=== PATIENT | female | born 1995 | race Caucasian/White ===

== ENCOUNTER → 2016-10-29 | Outpatient (CLI) | payer OTHER ==
--- NOTE | 2016-10-29 13:49 | REP ---
Clinical: Follow-up left ovarian cyst. Technique: Transabdominal pelvic ultrasound followed by transvaginal examination for better evaluation of the endometrium and adnexa with color Doppler evaluation of the ovaries. Findings: Bladder is unremarkable and measures 11.1 x 10.1 x 8.2 cm . Normal anteverted uterus measures 6.8 x 2.3 x 4.2 cm . The endometrial complex measures 5.2 mm thickness. No discrete uterine or endometrial abnormalities are appreciated. Bilateral ovaries are normal in appearance and vascularity without evidence for torsion. Right ovary measures 4.0 x 2.3 x 3.0 cm ; R I = 0.50 and includes 1.7 cm hemorrhagic cyst. Left ovary measures 3.3 x 1.9 x 2.9 cm ; R I = 0.60 and includes 1.7 cm hemorrhagic cyst. A small 4 mm echogenic focus within the left ovary is nonspecific but may represent a minuscule dermoid. The previously identified 3.9 cm complex lesion in the left ovary has resolved and likely represented physiologic hemorrhagic cyst. No pelvic fluid or adnexal mass lesion . Impression: 1. Normal bladder, uterus, and right ovary. 2. Previously identified 3.9 cm complex lesion in the left ovary has resolved and likely represented enlarged physiologic hemorrhagic cyst. 3. 4 mm echogenic focus in the left ovary is again identified and may represent a minuscule dermoid. Signed by Tommie Childers MD 10/29/2016 01:40 P
== END ==
LOC: M RAD 12:33
PROVIDERS: ATTEND Specialist
DX: R93.8 Abnormal findings on diagnostic imaging of other specified body structures (principal)

== ENCOUNTER 2017-06-05 13:30 | Emergency (ER) | payer OTHER ==
[~2017-06-05] VITALS: Ht 157.5 cm; Wt 45.5 kg
[2017-06-05 13:30] VITALS: BP 129/80
[2017-06-05] MEDS ORDERED: CETI10TA (13:40)
[2017-06-05] MEDS ORDERED: ANOR1AER (13:40)
[2017-06-05] MEDS ORDERED: MONT10TA2 (13:40)
[2017-06-05] MEDS ORDERED: ALBU17IN (13:40)
[2017-06-05] MEDS ORDERED: VITA1CAP40 (13:40)
[2017-06-05] MEDS ORDERED: GENTAMICIN 0.3% OPHTH SOL 5 ML BTL OD ONE (14:30)
[2017-06-05] MEDS ORDERED: FLUORESCEIN OPHTH 1 MG STRIP OD ONE (14:30)
[2017-06-05] MEDS ORDERED: ACETAMINOPH W/CODEINE #3 TAB UD PO ONE (14:30)
[2017-06-05] MEDS ORDERED: ACET30TAB PO (14:33)
[2017-06-05] MEDS ORDERED: GENT0.3O3 OD (14:33)
== END 2017-06-05 14:53 | disposition home or self-care (01) ==
LOC: M ED 14:18
DX: T20.20XA Burn of second degree of head, face, and neck, unspecified site, initial encounter (principal); S05.01XA Injury of conjunctiva and corneal abrasion without foreign body, right eye, initial encounter; X19.XXXA Contact with other heat and hot substances, initial encounter; W22.8XXA Striking against or struck by other objects, initial encounter; Y92.511 Restaurant or cafe as the place of occurrence of the external cause; Y93.89 Activity, other specified; Y99.0 Civilian activity done for income or pay; J45.909 Unspecified asthma, uncomplicated; Z79.899 Other long term (current) drug therapy

== ENCOUNTER → 2018-08-11 | Outpatient (CLI) | payer OTHER | LOC: M RAD 10:17 | DX: N63.10 Unspecified lump in the right breast, unspecified quadrant (principal) | CPT/HCPCS: 77066 ==

== ENCOUNTER → 2018-12-01 | Outpatient (REF) | payer OTHER ==
[~2018-12-01] MED LIST: ACET30TAB PO; ALBU17IN; ANOR1AER; CETI10TA; GENT0.3O3 OD; MONT10TA2; VITA50005
== END ==
LOC: M LAB REF 17:22
PROVIDERS: ATTEND Physician Assistant Medical
DX: J02.9 Acute pharyngitis, unspecified (principal)

== ENCOUNTER → 2018-12-28 | Outpatient (REF) | payer OTHER ==
[~2018-12-28] MED LIST changes: +ACET-716 PO; -ACET30TAB PO
[2018-12-28 18:10] LABS: BASO % 0.2 % (0.0-1.0); EOS # 0.2 10^3/uL (0.0-0.50); EOS % 2.5 % (0.0-3.0); HEMATOCRIT 40.4 % (36.0-47.0); LYMPH # 2.7 10^3/uL (1.5-6.5); LYMPH % 44.9 % (24.0-44.0); MEAN CORPUSCULAR HEMOGLOBIN 31.3 pg (27.0-33.0); MEAN CORPUSCULAR HGB CONC 34.7 g/dl (32.0-36.5); MEAN CORPUSCULAR VOLUME 90.2 fl (80.0-96.0); MONO # 0.5 10^3/uL (0.0-0.8); MONO % 8.5 % (0.0-5.0); NEUTROPHILS # 2.6 10^3/uL (1.8-7.7); NEUTROPHILS % 43.7 % (36.0-66.0); PLATELET COUNT, AUTOMATED 232 10^3/uL (150-450); RED BLOOD COUNT 4.48 10^6/uL (4.00-5.40)
[2018-12-28 18:22] LABS: ALT/SGPT 11 U/L (12-78); BILIRUBIN,TOTAL 0.4 MG/DL (0.2-1.0); BLOOD UREA NITROGEN 4 MG/DL (7-18); CALCIUM LEVEL 8.7 MG/DL (8.5-10.1); CARBON DIOXIDE LEVEL 28 MEQ/L (21-32); CHLORIDE LEVEL 108 MEQ/L (98-107); CREATININE FOR GFR 0.52 MG/DL (0.55-1.30); FREE T4 1.34 NG/DL (0.76-1.46); GLOMERULAR FILTRATION RATE > 60.0 (>60); GLUCOSE, FASTING 58 MG/DL (70-100); POTASSIUM SERUM 4.1 MEQ/L (3.5-5.1); SODIUM LEVEL 141 MEQ/L (136-145); THYROID STIMULATING HORMONE 0.969 uIU/ML (0.358-3.740); TOTAL PROTEIN 6.6 GM/DL (6.4-8.2)
== END ==
LOC: M SFHCADAM 11:46
PROVIDERS: ATTEND Physician Assistant Medical
DX: F32.9 Major depressive disorder, single episode, unspecified (principal); F41.9 Anxiety disorder, unspecified; F17.210 Nicotine dependence, cigarettes, uncomplicated

== ENCOUNTER → 2019-05-04 | Outpatient (CLI) | payer OTHER ==
--- NOTE | 2019-05-04 13:03 | REP ---
Right thumb four views : There is no fracture or dislocation. Mineralization and joint spaces are normal. There are no calcifications or foreign bodies. Impression: Negative right thumb . Electronically Signed by Gael Edmond MD 05/04/2019 12:54 P
== END ==
LOC: M ADAMS 10:01
PROVIDERS: ATTEND Physician Assistant Medical
DX: M79.644 Pain in right finger(s) (principal)

== ENCOUNTER → 2019-08-20 | Outpatient (CLI) | payer OTHER ==
[2019-08-20 14:27] LABS: BLOOD UREA NITROGEN 5 MG/DL (7-18); CALCIUM LEVEL 9.4 MG/DL (8.5-10.1); CARBON DIOXIDE LEVEL 29 MEQ/L (21-32); CHLORIDE LEVEL 106 MEQ/L (98-107); CHOLESTEROL LEVEL 180 MG/DL (<200); CREATININE FOR GFR 0.48 MG/DL (0.55-1.30); GLOMERULAR FILTRATION RATE > 60.0 (>60); GLUCOSE, FASTING 97 MG/DL (70-100); HDL CHOLESTEROL 45 MG/DL (>40); HEMOGLOBIN A1c 4.8 %; LDL CHOLESTEROL 112 MG/DL (<100); NON-HDL-C 135 MG/DL; POTASSIUM SERUM 4.5 MEQ/L (3.5-5.1); SODIUM LEVEL 140 MEQ/L (136-145); TRIGLYCERIDES LEVEL 113 MG/DL (<150)
== END ==
LOC: M PLALAB 11:59
PROVIDERS: ATTEND Student in an Organized Health Care Education/Training Program
DX: F32.2 Major depressive disorder, single episode, severe without psychotic features (principal); F12.20 Cannabis dependence, uncomplicated

== ENCOUNTER → 2020-01-04 | Outpatient (REF) | payer OTHER ==
[~2020-01-04] MED LIST changes: -MONT10TA2; +MONT10TA4
[2020-01-04 16:59] LABS: FREE T4 1.31 NG/DL (0.76-1.46); THYROID STIMULATING HORMONE 0.872 uIU/ML (0.358-3.740)
== END ==
LOC: M SFHCADAM 14:56
PROVIDERS: ATTEND Physician Assistant Medical
DX: E01.0 Iodine-deficiency related diffuse (endemic) goiter (principal)

== ENCOUNTER → 2020-01-15 | Outpatient (CLI) | payer OTHER ==
--- NOTE | 2020-01-16 03:47 | REP ---
Clinical: Thyromegaly. Technique: Real time jc scale and color evaluation using linear high frequency transducer. Findings: The thyroid gland is upper limits of normal in size and relatively normal in contour and parenchymal echo texture without significant mass, nodule or large cystic lesions identified. Isthmus measures 3.3 mm in width. Right lobe measures 5.1 x 1.6 x 1.9 cm and includes 2.6 x 1.4 x 1.8 mm mid pole incidental hypoechoic nodule/cyst with small echogenic foci. Left lobe measures 4.5 x 1.7 x 1.5 cm and includes 2.9 x 1.5 x 2.7 mm, 2.0 x 1.5 x 2.3 mm, and 2.3 x 0.9 x 1.9 mm hypoechoic nodules/cysts with small echogenic foci. Impression: Few small bilateral hypoechoic nodules/cysts measuring up to 2.6 mm maximal diameter are relatively nonspecific and likely incidental. Electronically Signed by Tommie Childers MD 01/16/2020 03:39 A
== END ==
LOC: M RAD 11:21
PROVIDERS: ATTEND Physician Assistant Medical
DX: E01.0 Iodine-deficiency related diffuse (endemic) goiter (principal)

== ENCOUNTER → 2020-02-18 | Outpatient (CLI) | payer OTHER, MEDICAID ==
[2020-02-18 14:10] LABS: ALBUMIN 3.9 GM/DL (3.2-5.2); ALT/SGPT 15 U/L (12-78); BILIRUBIN,DIRECT < 0.1 MG/DL (0.0-0.2); BILIRUBIN,TOTAL 0.2 MG/DL (0.2-1.0); BLOOD UREA NITROGEN 5 MG/DL (7-18); CALCIUM LEVEL 9.3 MG/DL (8.5-10.1); CARBON DIOXIDE LEVEL 28 MEQ/L (21-32); CHLORIDE LEVEL 108 MEQ/L (98-107); CREATININE FOR GFR 0.55 MG/DL (0.55-1.30); GLOMERULAR FILTRATION RATE > 60.0 (>60); GLUCOSE, FASTING 91 MG/DL (70-100); POTASSIUM SERUM 4.4 MEQ/L (3.5-5.1); SODIUM LEVEL 142 MEQ/L (136-145); TOTAL PROTEIN 7.4 GM/DL (6.4-8.2)
[2020-02-18 14:13] LABS: HEMOGLOBIN A1c 4.8 %
== END ==
LOC: M PLALAB 11:22
PROVIDERS: ATTEND Student in an Organized Health Care Education/Training Program
DX: F32.2 Major depressive disorder, single episode, severe without psychotic features (principal); F12.20 Cannabis dependence, uncomplicated

== ENCOUNTER 2020-04-24 21:59 | Inpatient (IN) | payer MEDICAID, OTHER ==
[~2020-04-24] VITALS: Ht 157.5 cm; Wt 48.3 kg
[2020-04-24] MEDS ORDERED: GABA-843 PO (22:25)
[2020-04-24] MEDS ORDERED: SERT-138 PO (22:25)
[2020-04-24] MEDS ORDERED: ARIP1TAB6 PO (22:25)
[2020-04-24] MEDS ORDERED: VALA1TAB5 PO (22:25)
[2020-04-25 00:16] LABS: HCG, SERUM QUALITATIVE NEGATIVE (NEGATIVE)
[2020-04-25 00:18] LABS: ACETAMINOPHEN LEVEL < 2.0 UG/ML (10.0-30.0); ALBUMIN 3.6 GM/DL (3.2-5.2); ALT/SGPT 19 U/L (12-78); BILIRUBIN,DIRECT < 0.1 MG/DL (0.0-0.2); BILIRUBIN,TOTAL 0.2 MG/DL (0.2-1.0); BLOOD UREA NITROGEN 3 MG/DL (7-18); CALCIUM LEVEL 9.1 MG/DL (8.5-10.1); CARBON DIOXIDE LEVEL 32 MEQ/L (21-32); CHLORIDE LEVEL 108 MEQ/L (98-107); CREATININE FOR GFR 0.56 MG/DL (0.55-1.30); ETHYL ALCOHOL (ETHANOL) < 0.003 % (0.000-0.010); GLOMERULAR FILTRATION RATE > 60.0 (>60); GLUCOSE, FASTING 95 MG/DL (70-100); SALICYLATE LEVEL 4.8 MG/DL (5.0-30.0); SODIUM LEVEL 142 MEQ/L (136-145); THYROID STIMULATING HORMONE 0.993 uIU/ML (0.358-3.740); TOTAL PROTEIN 6.8 GM/DL (6.4-8.2)
[2020-04-25 00:22] LABS: HEMATOCRIT 39.7 % (36.0-47.0); HEMOGLOBIN 13.6 g/dl (12.0-15.5); MEAN CORPUSCULAR HGB CONC 34.3 g/dl (32.0-36.5); MEAN CORPUSCULAR VOLUME 87.4 fl (80.0-96.0); PLATELET COUNT, AUTOMATED 257 10^3/uL (150-450); RED BLOOD COUNT 4.54 10^6/uL (4.00-5.40); WHITE BLOOD COUNT 6.6 10^3/uL (4.0-10.0)
[2020-04-25 00:39] LABS: AMPHETAMINES LEVEL URINE NEGATIVE (NEGATIVE); BARBITURATES URINE NEGATIVE (NEGATIVE); BENZODIAZEPINES URINE NEGATIVE (NEGATIVE); CANNABINOIDS URINE POSITIVE (NEGATIVE); COCAINE METABOLITE URINE NEGATIVE (NEGATIVE); METHADONE URINE NEGATIVE (NEGATIVE); OPIATES URINE NEGATIVE (NEGATIVE); PHENCYCLIDINE URINE NEGATIVE (NEGATIVE)
[2020-04-25] MEDS ORDERED: ACETAMINOPHEN TAB 650MG DOSE (2X325MG) PO PRN (01:15)
[2020-04-25] MEDS ORDERED: traZODone 50 MG TAB PO PRN (01:15)
[2020-04-25] MEDS ORDERED: MOM 30ML SUSPENSION UDC PO PRN (01:15)
[2020-04-25] MEDS ORDERED: POTASSIUM CHLORIDE 10 MEQ SR TABLET PO ONE (01:15)
[2020-04-25] MEDS ORDERED: MAALOX 30 ML SUSP *UDC PO PRN (01:15)
[2020-04-25] MEDS ORDERED: OLANZapine ORAL DISINTEGRATING TAB 5MG PO PRN (01:15)
[2020-04-25] MEDS ORDERED: CETI-24 PO (01:45)
[2020-04-25] MEDS ORDERED: ZOLO100T PO (01:45)
[2020-04-25] MEDS ORDERED: VALT1TAB PO (01:45)
[2020-04-25] MEDS ORDERED: VENTAER INH (01:45)
[2020-04-25] MEDS ORDERED: GABA-843 PO (01:45)
[2020-04-25] MEDS ORDERED: MONT10TA4 PO (01:45)
--- NOTE | 2020-04-25 07:59 | MHHPEPDOC ---
[facility] History & Physical History and Physical DATE OF ADMISSION: Apr 25, 2020 at 01:08 Patient was attempted to be met with, however she did not wake,. Comfortable but appear to ignore this provider. Briefly from the chart it appears that the patient had presented to the emergency room after having multiple stressors of friends overdosing on heroin where she had suicidal thoughts and depression. Past psychiatric history: unknown, appears to been previously on Zoloft and others, not clear where previous follow-up has been Family psychiatric history: unknown Social history: unknown, not clear if employed Mental status exam Comfortably resting in bed, appears to be in no acute distress, but ignores this provider Diagnosis: Unspecified depressive disorder Assessment and plan: Will continue home medications, at this time, hope patient be more cooperative for interview tomorrow with on-call provider, observational be needed as no safe plan can be determined, extension on her 9.39 will be completed in order to facilitate observation. Vital Signs Vital Signs Date Time Temp Pulse Resp B/P (MAP) Pulse Ox O2 Delivery O2 Flow Rate FiO2 04/24/20 22:11 97.8 88 16 125/73 99 Room Air Laboratory Data 24H Labs Laboratory Tests 2 04/24/20 22:45: Nucleated Red Blood Cells % (auto) 0.0, Anion Gap 2L, Glomerular Filtration Rate > 60.0, Calcium Level 9.1, Total Bilirubin 0.2, Direct Bilirubin < 0.1, Aspartate Amino Transf (AST/SGOT) 12, Alanine Aminotransferase (ALT/SGPT) 19, Alkaline Phosphatase 98, Total Protein 6.8, Albumin 3.6, Albumin/Globulin Ratio 1.1L, Thyroid Stimulating Hormone (TSH) 0.993, Human Chorionic Gonadotropin, Qual NEGATIVE, Salicylates Level 4.8L, Urine Opiates Screen NEGATIVE, Urine Methadone Screen NEGATIVE, Acetaminophen Level < 2.0L, Urine Barbiturates Screen NEGATIVE, Urine Phencyclidine Screen NEGATIVE, Urine Amphetamines Screen NEGATIVE, Urine Benzodiazepines Screen NEGATIVE, Urine Cocaine Metabolite Screen NEGATIVE, Urine Cannabinoids Screen POSITIVEH, Ethyl Alcohol Level < 0.003 CBC/BMP Laboratory Tests 04/24/20 22:45 Medications Scheduled Cetirizine HCl (Cetirizine HCl) 10 Mg Tablet, 10 MG PO DAILY, (Reported) Gabapentin (Gabapentin) 300 Mg Capsule, 300 MG PO TID, (Reported) Montelukast Sodium (Montelukast Sodium) 10 Mg Tablet, 10 MG PO DAILY, (Reported) Sertraline Hcl (Zoloft) 100 Mg Tablet, 200 MG PO DAILY, (Reported) Valacyclovir HCl (Valtrex) 1,000 Mg Tablet, 1 GM PO TID, (Reported) STARTED 04/19/2020 Scheduled PRN Albuterol Sulfate (Ventolin Hfa) 18 Gm Hfa.aer.ad, 2 PUFFS INH Q4H PRN for SHORTNESS OF BREATH, (Reported) Allergies Coded Allergies: No Known Allergies (Unverified , 06/05/17) ELIF BIRCH DO Apr 25, 2020 07:59
[2020-04-25] MEDS: NICOTINE 21MG/24HR 1 EA TRANSDERMAL TD SCH (09:01)
[2020-04-25 16:00] VITALS: BP 108/65
[2020-04-25] MEDS ORDERED: diphenhydrAMINE 25MG CAP PO PRN (20:45)
[2020-04-25] MEDS: HYDROCORTISONE 1% OINTMENT 30GM TOP SCH (21:00)
[2020-04-25] MEDS ORDERED: ARIPiprazole 2 MG TAB PO SCH (21:00)
[2020-04-25] MEDS ORDERED: diphenhydrAMINE 25MG CAP PO ONE (23:30)
[2020-04-26 06:18] VITALS: BP 117/73
[2020-04-26] MEDS: HYDROCORTISONE 1% OINTMENT 30GM TOP SCH ×2 (09:15→21:15)
[2020-04-26] MEDS: NICOTINE 21MG/24HR 1 EA TRANSDERMAL TD SCH (09:16)
[2020-04-26] MEDS: SERTRALINE 100 MG TAB PO SCH (12:22)
[2020-04-26] MEDS ORDERED: GABAPENTIN 300 MG CAP PO ONE (12:30)
[2020-04-26 16:08] VITALS: BP 115/74
[2020-04-26] MEDS: GABAPENTIN 300 MG CAP PO SCH ×2 (16:19→21:15)
[2020-04-27 06:39] VITALS: BP 144/74
[2020-04-27] MEDS: NICOTINE 21MG/24HR 1 EA TRANSDERMAL TD SCH (08:31)
[2020-04-27] MEDS: HYDROCORTISONE 1% OINTMENT 30GM TOP SCH ×2 (08:31→20:44)
[2020-04-27] MEDS: SERTRALINE 100 MG TAB PO SCH (08:31)
[2020-04-27] MEDS: GABAPENTIN 300 MG CAP PO SCH ×3 (08:31→20:42)
[2020-04-27 16:16] VITALS: BP 127/77
[2020-04-28 06:11] VITALS: BP 113/74
[2020-04-28] MEDS: SERTRALINE 100 MG TAB PO SCH (08:35)
[2020-04-28] MEDS: HYDROCORTISONE 1% OINTMENT 30GM TOP SCH ×2 (08:35→20:19)
[2020-04-28] MEDS: GABAPENTIN 300 MG CAP PO SCH ×3 (08:35→20:18)
[2020-04-28] MEDS: NICOTINE 21MG/24HR 1 EA TRANSDERMAL TD SCH (08:36)
--- NOTE | 2020-04-28 11:38 | MHIPNPDOC ---
[facility] Progress Note Progress Note DATE OF SERVICE: 04/28/20 Subjective HPI: Stephanie notes that she is doing well today and would like to be discharged today to see her friends and family, but she will be discharged tomorrow after going through the discharge process. She notes that she has a therapy appointment scheduled for next Tuesday. Objective Mood: Appropriately reactive. Euthymic. Generally good. Speech: Normal volume. Spontaneous and Fluid. Normal rate. Thought Form: Linear. Logical. Thought Content: No evidence of aggressive or homicidal ideation. No evidence of suicidal ideation. No thoughts of self harm. No evidence of delusions. Judgement: Fair. Assessment F32.9 Major depressive disorder, single episode, unspecified Plan Discharge tomorrow. Safe plan needs to be created. Patient was insistent, however, at this time given her pre-existing factors, well need to engage in proper safety planning. Vital Signs Vital Signs Date Time Temp Pulse Resp B/P (MAP) Pulse Ox O2 Delivery O2 Flow Rate FiO2 04/28/20 06:11 97.8 56 16 113/74 (87) 04/26/20 06:18 Room Air 04/24/20 22:11 99 Current Medications Current Medications Medications (Trade) Dose Ordered Sig/Hood Route PRN Reason Start Time Stop Time Status Last Admin Dose Admin Acetaminophen (Tylenol Tab) 650 mg Q6HP PRN PO HEADACHE or DISCOMFORT 04/25/20 01:15 Al Hydrox/Mg Hydrox/Simethicone (Mylanta) 30 ml Q4HP PRN PO HEARTBURN/INDIGESTION 04/25/20 01:15 Aripiprazole (AbiLIFY) 2 mg QHS PO 04/25/20 21:00 04/25/20 10:26 DC Diphenhydramine HCl (Benadryl) 25 mg BIDP PRN PO ITCHING 04/25/20 20:45 04/27/20 20:45 DC 04/25/20 20:53 Gabapentin (Neurontin) 300 mg TID PO 04/26/20 16:00 04/28/20 08:35 Home Med (Med Rec Complete!) ASDIRECTED XX 04/25/20 02:00 04/25/20 01:49 DC Hydrocortisone (Hydrocortisone 1% Ointment) Apply to affected areas... BID TOP 04/25/20 21:00 04/28/20 08:35 Magnesium Hydroxide (Milk Of Magnesia) 30 ml DAILYPRN PRN PO CONSTIPATION 04/25/20 01:15 Nicotine (Nicoderm Cq 21mg) 1 patch DAILY TD 04/25/20 09:00 04/27/20 08:31 Olanzapine (ZyPREXA ZYDIS) 5 mg Q6HP PRN PO AGITATION/ ANXIETY 04/25/20 01:15 Sertraline HCl (Zoloft) 200 mg DAILY PO 04/26/20 09:00 04/28/20 08:35 Trazodone HCl (Desyrel) 50 mg QHSP PRN PO INSOMNIA 04/25/20 01:15 Allergies Coded Allergies: No Known Allergies (Unverified , 06/05/17) ELIF BIRCH DO Apr 28, 2020 11:38
[2020-04-28 17:32] VITALS: BP 138/84
[2020-04-29 06:47] VITALS: BP 107/67
--- NOTE | 2020-04-29 07:59 | MHDSPDOC ---
[facility] Discharge Summary Discharge Summary DATE OF ADMISSION: Apr 25, 2020 at 01:08 DATE OF DISCHARGE: Apr 29, 2020 at 13:23 DISCHARGE DIAGNOSES: F43.21 Adjustment disorder with depressed mood CONSULTANTS INVOLVED:[ None (basic hospitalist screening)] REASON FOR ADMISSION & TREATMENT AND PROGRESS ON THE UNIT : The patient was admitted to the inpatient mental health unit after expression suicidal thoughts and present after multiple stressors. She was admitted and resumed on her home medications, Sertraline and Gabapentin, without incident. She made good recovery without much problem, suggesting an adjustment rather than over major depression. She did well in unit an eventually was triaged for discharge after safe plan was created. She was discharged home. DISCHARGE ASSESSMENT[improved] Legal status considerations: The patient at the time of discharge did not meet criteria for involuntary admission/extension due to having a [normal] mental status exam, [fair] insight into the situation, They are engaged in the discharge process, as well as being friendly and amenable in behavioral control and havent been engaging in any observed concerning behavior or ideation recently. They decline voluntary extension/admission at this time and must be discharged in good markus, as Im unable to make a case for holding the patient against their will. They may have historical risk factors of admissions and other interactions with psychiatry however, those are not modifiable from a clinical perspective. The patient will need to be discharged in good markus. MENTAL STATUS EXAMINATION ON DISCHARGE: [General: Well dressed with good hygiene Speech: Spontaneous and fluid Thought processes: Linear and logical Thought content: Future orientated Abstract reasoning, and computation: Intact Description of associations: Intact Description of abnormal or psychotic thoughts:Denies any suicidal or homicidal ideation. Denies any auditory or visual hallucinations. Does not appear to be responding to internal stimuli. Does not appear to be endorsing any bizarre or paranoid ideation. Judgment: fair Insight: fair Orientation: Alert and orientated 3 Recent and remote memory: Intact Attention span and concentration: Intact Fund of knowledge: Adequate Mood: "okay" Affect: Euthymic with a full range] PLAN/FOLLOWUP ARRANGEMENTS: Follow up appointments made (PCP and MH in 5 days of D/C date) and safety plan completed. Safety Planning aspects completed prior to discharge [Family contact completed, educated on safe practices, instructed on removal and mitigation of dangerous means] [RN reviewed crisis hotline information and other aspects to empower patient to access care in interim before next appointment.] The amount of time spent in the coordination of care for this patient was approximately 30 minutes. Vital Signs/I&Os Vital Signs Date Time Temp Pulse Resp B/P (MAP) Pulse Ox O2 Delivery O2 Flow Rate FiO2 04/29/20 06:47 98.9 63 14 107/67 (80) 99 04/26/20 06:18 Room Air Medications Scheduled Cetirizine HCl (Cetirizine HCl) 10 Mg Tablet, 10 MG PO DAILY, (Reported) Gabapentin (Gabapentin) 300 Mg Capsule, 300 MG PO TID, (Reported) Montelukast Sodium (Montelukast Sodium) 10 Mg Tablet, 10 MG PO DAILY, (Reported) Nicotine (Nicotine Patch) 21 Mg Patch.td24, 1 PATCH TD DAILY for tobacco for 30 Days, #30 Sertraline Hcl (Zoloft) 100 Mg Tablet, 200 MG PO DAILY, (Reported) Valacyclovir HCl (Valtrex) 1,000 Mg Tablet, 1 GM PO TID for 7 Days, (Reported) STARTED 04/19/2020 Scheduled PRN Albuterol Sulfate (Ventolin Hfa) 18 Gm Hfa.aer.ad, 2 PUFFS INH Q4H PRN for SHORTNESS OF BREATH, (Reported) Allergies Coded Allergies: No Known Allergies (Unverified , 06/05/17) ELIF BIRCH DO Apr 29, 2020 07:59
[2020-04-29] MEDS: SERTRALINE 100 MG TAB PO SCH (08:00)
[2020-04-29] MEDS: GABAPENTIN 300 MG CAP PO SCH (08:00)
[2020-04-29] MEDS ORDERED: NICO21PAT TD (08:04)
[2020-04-29] MEDS: HYDROCORTISONE 1% OINTMENT 30GM TOP SCH (09:00)
[2020-04-29] MEDS: NICOTINE 21MG/24HR 1 EA TRANSDERMAL TD SCH (09:00)
--- NOTE | 2020-05-20 08:16 | MHIPN ---
DATE: 04/26/2020 VITAL SIGNS: Blood pressure 117/73, pulse 66, temperature 97.6. CHIEF COMPLAINT: Says feels okay. SUBJECTIVE: Seen for followup in the presence in staff. Says feels okay but acknowledges is still depressed and feels tired. Says had a fair amount of sleep. Has eaten earlier this morning. MENTAL STATUS EXAMINATION: Somewhat unkempt. She is cooperative, though possibly a bit guarded. No agitation. Possible psychomotor retardation. Affect is restricted in range but shows some reactivity. Vague on suicidal thoughts. No firm plans. No evidence at present of any psychosis. No homicidal ideas or intents. Judgment and insight fair at best. ASSESSMENT: Unspecified depressive disorder. PLAN: Continue current care and observations. Look at obtaining collateral information. Is on gabapentin. Says takes it for anxiety and sertraline for depression. Gabapentin is 300 mg three times a day. the sertraline is 200 mg daily. Will continue with these for now. Further recommendations will be made depending in the clinical picture. MTDD
--- NOTE | 2020-05-20 08:19 | MHIPN ---
DATE: 04/27/2020 VITAL SIGNS: Blood pressure 144/74, pulse 87, temperature 98.6. CHIEF COMPLAINT: Feels better. SUBJECTIVE: Seen for followup in the presence of staff. Says feels better, in that she had a good night, feels more rested. Feels less depressed. MENTAL STATUS EXAMINATION: Is sitting up in bed, she is neat, she is cooperative, she is coherent, affect restricted but reactive. She denies any thoughts of harming herself or anyone else, currently no evidence of any psychosis. Cognition grossly intact. Judgment and insight possibly improved. ASSESSMENT: Other specified depressive disorder. Appears more relaxed, less depressed, than she did yesterday. PLAN: Continue current care observations, and further recommendations will be made depending on the clinical picture, when she sees her assigned psychiatrist. EKTA
== END 2020-04-29 13:23 | disposition home or self-care (01) | DRG 754 ==
LOC: M ED 21:59 → M ED INP 04-25 01:08 → M PSY 04-25 04:45
PROVIDERS: ADMIT Psychiatry & Neurology Psychiatry; ATTEND Psychiatry & Neurology Addiction Medicine
DX: F43.21 Adjustment disorder with depressed mood (principal); R45.851 Suicidal ideations; Z79.899 Other long term (current) drug therapy

== ENCOUNTER → 2020-05-05 | Outpatient (REF) | payer MEDICAID, OTHER ==
[~2020-05-05] MED LIST changes: +ARIP1TAB6 PO; +CETI-24 PO; +GABA-843 PO; +MONT10TA4 PO; +NICO21PAT TD; +SERT-138 PO; +VALA1TAB5 PO; +VALT1TAB PO; +VENTAER INH; +ZOLO100T PO
[2020-05-05 18:26] LABS: BLOOD UREA NITROGEN 2 MG/DL (7-18); CALCIUM LEVEL 8.9 MG/DL (8.5-10.1); CARBON DIOXIDE LEVEL 30 MEQ/L (21-32); CHLORIDE LEVEL 108 MEQ/L (98-107); GLOMERULAR FILTRATION RATE > 60.0 (>60); GLUCOSE, FASTING 79 MG/DL (70-100); POTASSIUM SERUM 4.2 MEQ/L (3.5-5.1); SODIUM LEVEL 143 MEQ/L (136-145)
== END ==
LOC: M LAB REF 16:44 → M LABDRWAD 16:44
PROVIDERS: ATTEND Physician Assistant Medical
DX: E87.6 Hypokalemia (principal)

== ENCOUNTER → 2020-06-30 | Outpatient (REF) | payer OTHER ==
[2020-06-30 14:40] LABS: CHLAMYDIA DNA AMPLIFICATION NEGATIVE (NEGATIVE); GC DNA AMPLIFICATION NEGATIVE (NEGATIVE)
== END ==
LOC: M SFHCADAM 11:29
PROVIDERS: ATTEND Physician Assistant Medical
DX: Z01.419 Encounter for gynecological examination (general) (routine) without abnormal findings (principal); Z12.39 Encounter for other screening for malignant neoplasm of breast; Z12.4 Encounter for screening for malignant neoplasm of cervix

== ENCOUNTER → 2020-09-02 | Outpatient (REF) | payer OTHER ==
[~2020-09-02] MED LIST changes: -MONT10TA4; -MONT10TA4 PO; +MONT5TAB2; +MONT5TAB2 PO
== END ==
LOC: M SFHCADAM 16:31
PROVIDERS: ATTEND Physician Assistant Medical
DX: K13.29 Other disturbances of oral epithelium, including tongue (principal)

== ENCOUNTER → 2020-09-19 | Outpatient (REF) | payer OTHER, MEDICAID ==
[~2020-09-19] MED LIST changes: +GABA-282 PO; -GABA-843 PO
[2020-09-19 13:28] LABS: BLOOD UREA NITROGEN 4 MG/DL (7-18); CALCIUM LEVEL 9.3 MG/DL (8.5-10.1); CARBON DIOXIDE LEVEL 29 MEQ/L (21-32); CHLORIDE LEVEL 106 MEQ/L (98-107); CHOLESTEROL LEVEL 237 MG/DL (<200); CHOLESTEROL RISK RATIO 5.042 (<5); CREATININE FOR GFR 0.51 MG/DL (0.55-1.30); GLOMERULAR FILTRATION RATE > 60.0 (>60); GLUCOSE, FASTING 90 MG/DL (70-100); HDL CHOLESTEROL 47 MG/DL (>40); LDL CHOLESTEROL 167 MG/DL (<100); NON-HDL-C 190 MG/DL; POTASSIUM SERUM 3.9 MEQ/L (3.5-5.1); SODIUM LEVEL 140 MEQ/L (136-145); TRIGLYCERIDES LEVEL 114 MG/DL (<150)
[2020-09-19 13:44] LABS: HEMOGLOBIN A1c 4.8 %
== END ==
LOC: M LABDRWAD 12:47
PROVIDERS: ATTEND Psychiatry & Neurology Psychiatry
DX: F32.2 Major depressive disorder, single episode, severe without psychotic features (principal); F12.20 Cannabis dependence, uncomplicated

== ENCOUNTER → 2020-09-30 | Outpatient (REF) | payer OTHER ==
[~2020-09-30] MED LIST changes: +MONT10TA10; +MONT10TA10 PO; -MONT5TAB2; -MONT5TAB2 PO
[2020-09-30 14:16] LABS: ALBUMIN 3.9 GM/DL (3.2-5.2); ALT/SGPT 12 U/L (12-78); BILIRUBIN,TOTAL 0.3 MG/DL (0.2-1.0); BLOOD UREA NITROGEN 7 MG/DL (7-18); CALCIUM LEVEL 9.8 MG/DL (8.5-10.1); CARBON DIOXIDE LEVEL 29 MEQ/L (21-32); CHLORIDE LEVEL 106 MEQ/L (98-107); GLOMERULAR FILTRATION RATE > 60.0 (>60); GLUCOSE, FASTING 93 MG/DL (70-100); MAGNESIUM LEVEL 2.1 MG/DL (1.8-2.4); POTASSIUM SERUM 4.1 MEQ/L (3.5-5.1); SODIUM LEVEL 141 MEQ/L (136-145); THYROID STIMULATING HORMONE 0.961 uIU/ML (0.358-3.740); TOTAL PROTEIN 6.6 GM/DL (6.4-8.2)
== END ==
LOC: M SFHCADAM 10:58
PROVIDERS: ATTEND Physician Assistant Medical
DX: F17.210 Nicotine dependence, cigarettes, uncomplicated (principal)

== ENCOUNTER → 2020-10-20 | Outpatient (REF) | payer OTHER | LOC: M SFHCADAM 11:11 | PROVIDERS: ATTEND Physician Assistant Medical | DX: J34.89 Other specified disorders of nose and nasal sinuses (principal) ==

== ENCOUNTER → 2021-02-20 | Outpatient (CLI) | payer OTHER, MEDICAID ==
--- NOTE | 2021-02-20 17:17 | REP ---
INDICATION: ASTHMA WITH ACUTE EXACERBATION, UNSPECIFIED SEVERITY. COMPARISON: 12/19/2007 TECHNIQUE: PA and lateral FINDINGS: There is blunting of the right CP angle. Cardiomediastinal silhouette is within normal limits. Lung rice are otherwise clear. The osseous structures are within normal limits. IMPRESSION: There is blunting of the right CP angle, however, it is unchanged compared to the prior exam. There is no evidence of acute disease. <Electronically signed by Karl Lewis > 02/20/21 1142
== END ==
LOC: M ADAMS 14:57
PROVIDERS: ATTEND Family Medicine
DX: J45.901 Unspecified asthma with (acute) exacerbation (principal)

== ENCOUNTER → 2021-03-16 | Outpatient (REF) | payer OTHER, MEDICAID ==
[2021-03-16 13:42] LABS: BLOOD UREA NITROGEN 2 MG/DL (7-18); CARBON DIOXIDE LEVEL 31 MEQ/L (21-32); CHLORIDE LEVEL 106 MEQ/L (98-107); CHOLESTEROL LEVEL 195 MG/DL (<200); CHOLESTEROL RISK RATIO 4.756 (<5); CREATININE FOR GFR 0.42 MG/DL (0.55-1.30); GLOMERULAR FILTRATION RATE > 60.0 (>60); GLUCOSE, FASTING 81 MG/DL (70-100); GLUCOSE,RANDOM 81 MG/DL (LESS THAN 200); HDL CHOLESTEROL 41 MG/DL (>40); LDL CHOLESTEROL 131 MG/DL (<100); NON-HDL-C 154 MG/DL; POTASSIUM SERUM 3.6 MEQ/L (3.5-5.1); SODIUM LEVEL 144 MEQ/L (136-145); TRIGLYCERIDES LEVEL 113 MG/DL (<150)
[2021-03-16 14:22] LABS: HEMOGLOBIN A1c 4.8 %
== END ==
LOC: M LABDRWAD 12:51
PROVIDERS: ATTEND Student in an Organized Health Care Education/Training Program
DX: F32.2 Major depressive disorder, single episode, severe without psychotic features (principal); F12.20 Cannabis dependence, uncomplicated

== ENCOUNTER → 2021-04-22 | Outpatient (CLI) | payer OTHER, MEDICAID ==
--- NOTE | 2021-04-22 12:23 | REP ---
INDICATION: RIGHT WRIST PAIN. COMPARISON: None. TECHNIQUE: Four views FINDINGS: There is no acute fracture or destructive osseous lesion. IMPRESSION: Within normal limits <Electronically signed by Karl Lewis > 04/22/21 1701
== END ==
LOC: M ADAMS 12:04
PROVIDERS: ATTEND Family Medicine
DX: M25.531 Pain in right wrist (principal)

== ENCOUNTER → 2021-06-08 | Outpatient (REF) | payer OTHER | LOC: M SFHCADAM 10:16 | PROVIDERS: ATTEND Family Medicine | DX: J06.9 Acute upper respiratory infection, unspecified (principal) ==

== ENCOUNTER → 2021-06-08 | Outpatient (REF) | payer OTHER | LOC: M SFHCADAM 15:22 | PROVIDERS: ATTEND Family Medicine | DX: J06.9 Acute upper respiratory infection, unspecified (principal) ==

== ENCOUNTER → 2021-08-10 | Outpatient (REF) | payer OTHER ==
[2021-08-11 14:11] LABS: GC DNA AMPLIFICATION NEGATIVE (NEGATIVE)
== END ==
LOC: M SFHCADAM 15:45
PROVIDERS: ATTEND Physician Assistant Medical
DX: Z12.4 Encounter for screening for malignant neoplasm of cervix (principal)

== ENCOUNTER → 2021-10-09 | Outpatient (REF) | payer OTHER ==
[~2021-10-09] MED LIST changes: +ALBU83IN; +ARNU1INH; +AZEL1SPR3; +FLUTISP; +MIRT-60; +MOLN200C PO; -MONT10TA10; -MONT10TA10 PO; +MONT10TA97; +MONT10TA97 PO; +PRED20TA PO; +QUET50TA4; +VENL75CA47
== END ==
LOC: M SFHCADAM 16:31
PROVIDERS: ATTEND Physician Assistant Medical
DX: J02.9 Acute pharyngitis, unspecified (principal)

== ENCOUNTER 2021-10-10 11:14 | Emergency (ER) | payer OTHER ==
[~2021-10-10] VITALS: Ht 157.5 cm; Wt 47.7 kg
[~2021-10-10 11:14] MED LIST changes: -ALBU83IN; -ARNU1INH; -AZEL1SPR3; -FLUTISP; -MIRT-60; -MOLN200C PO; -PRED20TA PO; -QUET50TA4; -VENL75CA47
[2021-10-10] MEDS ORDERED: VENL75CA47 (11:34)
[2021-10-10] MEDS ORDERED: QUET50TA4 (11:34)
[2021-10-10] MEDS ORDERED: MIRT-60 (11:34)
[2021-10-10] MEDS ORDERED: AZEL1SPR3 (11:34)
[2021-10-10] MEDS ORDERED: ALBU83IN (11:34)
[2021-10-10] MEDS ORDERED: ARNU1INH (11:34)
[2021-10-10] MEDS ORDERED: FLUTISP (11:34)
[2021-10-10] MEDS ORDERED: ALBUTEROL 90 MCG/ACT 8GM HFA INHALER INH ONE (12:15)
[2021-10-10] MEDS ORDERED: NS 1,000 ML IV ONE (12:15)
[2021-10-10] MEDS ORDERED: methylPREDNISolone 125MG 2ML VIAL IV ONE (12:15)
[2021-10-10 12:53] LABS: BASO % 0.2 % (0.0-1.0); HEMATOCRIT 41.2 % (36.0-47.0); HEMOGLOBIN 14.6 g/dl (12.0-15.5); LYMPH # 1.8 10^3/uL (1.5-5.0); LYMPH % 15.1 % (24.0-44.0); MEAN CORPUSCULAR HEMOGLOBIN 30.8 pg (27.0-33.0); MEAN CORPUSCULAR HGB CONC 35.4 g/dl (32.0-36.5); MEAN CORPUSCULAR VOLUME 86.9 fl (80.0-96.0); MONO # 1.2 10^3/uL (0.0-0.8); MONO % 9.7 % (2.0-8.0); NEUTROPHILS % 74.5 % (36.0-66.0); PLATELET COUNT, AUTOMATED 201 10^3/uL (150-450); RED BLOOD COUNT 4.74 10^6/uL (4.00-5.40)
[2021-10-10 13:13] LABS: ALT/SGPT 15 U/L (12-78); BILIRUBIN,DIRECT 0.2 MG/DL (0.0-0.2); BILIRUBIN,TOTAL 0.4 MG/DL (0.2-1.0); BLOOD UREA NITROGEN 8 MG/DL (7-18); CALCIUM LEVEL 9.9 MG/DL (8.5-10.1); CARBON DIOXIDE LEVEL 23 MEQ/L (21-32); CHLORIDE LEVEL 102 MEQ/L (98-107); CREATININE FOR GFR 0.65 MG/DL (0.55-1.30); GLOMERULAR FILTRATION RATE > 60.0 (>60); GLUCOSE, FASTING 99 MG/DL (70-100); POTASSIUM SERUM 3.9 MEQ/L (3.5-5.1); SODIUM LEVEL 134 MEQ/L (136-145); TOTAL PROTEIN 7.6 GM/DL (6.4-8.2)
[2021-10-10] MEDS ORDERED: MOLN200C PO ×2 (14:05→14:09)
[2021-10-10] MEDS ORDERED: PRED20TA PO (14:09)
[2021-10-10 14:21] VITALS: BP 127/70
== END 2021-10-10 14:23 | disposition home or self-care (01) ==
LOC: M ED 11:14
DX: U07.1 COVID-19 (principal); J45.901 Unspecified asthma with (acute) exacerbation; F19.10 Other psychoactive substance abuse, uncomplicated; F32.A Depression, unspecified; F41.9 Anxiety disorder, unspecified; Z79.51 Long term (current) use of inhaled steroids; Z79.899 Other long term (current) drug therapy
CPT/HCPCS: 71045; 80048; 80076; 84702; 85025; 87798; 87880; 94640; 96361; 96374; 99284; J2930

== ENCOUNTER → 2021-10-26 | Outpatient (CLI) | payer OTHER ==
[~2021-10-26] MED LIST changes: +ALBU83IN; +ARNU1INH; +AZEL1SPR3; +FLUTISP; +MIRT-60; +MOLN200C PO; +PRED20TA PO; +QUET50TA4; +VENL75CA47
== END ==
LOC: M SOG 09:42
PROVIDERS: ATTEND Orthopaedic Surgery Hand Surgery
DX: M25.531 Pain in right wrist (principal); M79.641 Pain in right hand

== ENCOUNTER → 2021-11-25 | Outpatient (CLI) | payer OTHER | LOC: M LABSMTC 09:42 | PROVIDERS: ATTEND Anesthesiology | DX: Z01.818 Encounter for other preprocedural examination (principal); Z11.52 Encounter for screening for COVID-19 ==

== ENCOUNTER 2021-11-30 06:55 | Day surgery (SDC) | payer OTHER ==
[~2021-11-30] VITALS: Ht 157.5 cm; Wt 46.7 kg
[~2021-11-30 06:55] MED LIST changes: -ARNU1INH; +ARNU1INH INH; +LR 1,000 ML IV ONE; +NAPR-855 PO; -QUET50TA4; +QUET50TA4 PO; -VENL75CA47; +VENL75CA47 PO; +VITA100093 PO
[2021-11-30] MEDS ORDERED: propofoL 200 MG/20 ML VIAL As Ordered ONE (07:15)
[2021-11-30] MEDS ORDERED: LIDOCAINE 2% 100MG/5ML SDV (FOR ANES.) As Ordered ONE (07:16)
[2021-11-30] MEDS ORDERED: MIDAZOLAM INJ 2MG/2ML VIAL (J2250 PER 1MG) As Ordered ONE (07:16)
[2021-11-30] MEDS ORDERED: fentaNYL 100 MCG/2 ML INJECTION As Ordered ONE (07:16)
[2021-11-30] MEDS ORDERED: ONDANSETRON 4MG/2ML VIAL As Ordered ONE (08:00)
[2021-11-30] MEDS ORDERED: dexameTHASONE 4 MG/ML 1ML VIAL (J1100 PER 1MG) As Ordered ONE (08:00)
[2021-11-30] MEDS ORDERED: BUPIVACAINE HCL 0.25% 30ML VIAL As Ordered ONE (09:05)
[2021-11-30] MEDS ORDERED: BUPIVACAINE HCL 0.25% 10ML VIAL As Ordered ONE (09:08)
[2021-11-30] MEDS ORDERED: TRAM50TA2 PO (09:54)
[2021-11-30] MEDS ORDERED: HYDROMORPHONE HCL 0.5 MG/ 0.5 ML SYRINGE (J1170 PER 1) IV PRN (10:05)
[2021-11-30] MEDS ORDERED: oxyCODONE 5MG TAB PO PRN (10:05)
[2021-11-30] MEDS ORDERED: LR 1,000 ML IV SCH (10:05)
[2021-11-30] MEDS ORDERED: fentaNYL 100 MCG/2 ML INJECTION IV PRN (10:05)
[2021-11-30] MEDS ORDERED: ONDANSETRON 4MG/2ML VIAL IV PRN (10:05)
[2021-11-30 10:59] VITALS: BP 116/88
== END 2021-11-30 11:13 | disposition home or self-care (01) ==
LOC: M SDC 06:55
PROVIDERS: ATTEND Orthopaedic Surgery Hand Surgery
DX: G56.01 Carpal tunnel syndrome, right upper limb (principal); J45.909 Unspecified asthma, uncomplicated; F33.9 Major depressive disorder, recurrent, unspecified; F41.9 Anxiety disorder, unspecified; Z79.899 Other long term (current) drug therapy; F17.210 Nicotine dependence, cigarettes, uncomplicated; F12.20 Cannabis dependence, uncomplicated
CPT/HCPCS: 29848; 81025; J1100; J2250; J2405; J3010

== ENCOUNTER 2022-04-01 09:50 | Emergency (ER) | payer MEDICAID, OTHER ==
[~2022-04-01] VITALS: Ht 157.5 cm; Wt 47.0 kg
[~2022-04-01 09:50] MED LIST changes: -PRED10TA2 PO
[2022-04-01] MEDS ORDERED: predniSONE 20 MG TAB PO ONE (12:35)
[2022-04-01] MEDS ORDERED: PRED10TA2 PO (13:37)
[2022-04-01 13:51] VITALS: BP 126/77
== END 2022-04-01 13:52 | disposition home or self-care (01) ==
LOC: M ED 09:50
DX: T78.40XA Allergy, unspecified, initial encounter (principal); L50.9 Urticaria, unspecified; J45.909 Unspecified asthma, uncomplicated; R51.9 Headache, unspecified; F20.9 Schizophrenia, unspecified; F41.9 Anxiety disorder, unspecified; F32.A Depression, unspecified; F17.200 Nicotine dependence, unspecified, uncomplicated; Z79.899 Other long term (current) drug therapy
CPT/HCPCS: 99283; J7512

== ENCOUNTER → 2022-04-01 | Outpatient (REF) | payer OTHER ==
[~2022-04-01] MED LIST changes: +ALBU2.5V10; -ALBU83IN; -LR 1,000 ML IV ONE; +PRED10TA2 PO; +TRAM50TA2 PO
== END ==
LOC: M SFHCADAM 16:23
PROVIDERS: ATTEND Family Medicine
DX: J02.9 Acute pharyngitis, unspecified (principal)

== ENCOUNTER → 2022-05-24 | Outpatient (REF) | payer OTHER ==
[~2022-05-24] MED LIST changes: +PRED10TA2 PO
[2022-05-24 14:04] LABS: FREE T4 1.1 NG/DL (0.76-1.46); THYROID STIMULATING HORMONE 1.32 uIU/ML (0.358-3.740)
== END ==
LOC: M SFHCADAM 08:57
PROVIDERS: ATTEND Physician Assistant Medical
DX: E04.1 Nontoxic single thyroid nodule (principal); E01.0 Iodine-deficiency related diffuse (endemic) goiter

== ENCOUNTER → 2022-05-31 | Outpatient (CLI) | payer OTHER | LOC: M WHC 12:44 | PROVIDERS: ATTEND Physician Assistant Medical | DX: E04.1 Nontoxic single thyroid nodule (principal) ==

== ENCOUNTER → 2022-07-08 | Outpatient (REF) | payer OTHER | LOC: M SFHCADAM 12:37 | PROVIDERS: ATTEND Physician Assistant Medical | DX: J06.9 Acute upper respiratory infection, unspecified (principal); M79.10 Myalgia, unspecified site ==

== ENCOUNTER → 2022-10-29 | Outpatient (CLI) | payer MEDICAID, OTHER ==
[~2022-10-29] MED LIST changes: +MIRT-11 PO; +VENL150C43 PO
== END ==
LOC: M LABSMTC 07:33
PROVIDERS: ATTEND Anesthesiology
DX: Z01.812 Encounter for preprocedural laboratory examination (principal); Z20.822 Contact with and (suspected) exposure to COVID-19

== ENCOUNTER 2022-11-03 09:22 | Day surgery (SDC) | payer OTHER ==
[~2022-11-03] VITALS: Ht 157.5 cm; Wt 52.6 kg
[~2022-11-03 09:22] MED LIST changes: +BUPIVACAINE HCL 0.5% 30ML VIAL As Ordered ONE; +LIDOCAINE 1% MDV 20ML VIAL As Ordered ONE; +ceFAZolin SOD 2 GM in IV 1 EA IV ONE
[2022-11-03] MEDS ORDERED: LR 1,000 ML IV SCH (09:55)
[2022-11-03] MEDS ORDERED: LIDOCAINE 1% SDV 5ML VIAL SC PRN (09:55)
[2022-11-03] MEDS ORDERED: KETOROLAC 60MG 2ML VIAL As Ordered ONE (10:08)
[2022-11-03] MEDS ORDERED: propofoL 200 MG/20 ML VIAL As Ordered ONE (10:08)
[2022-11-03] MEDS ORDERED: LIDOCAINE 2% 100MG/5ML SDV (FOR ANES.) As Ordered ONE (10:08)
[2022-11-03] MEDS ORDERED: ONDANSETRON 4MG 2ML VIAL As Ordered ONE (10:08)
[2022-11-03] MEDS ORDERED: MIDAZOLAM INJ 2MG/2ML VIAL As Ordered ONE (10:14)
[2022-11-03] MEDS ORDERED: fentaNYL 100 MCG/2 ML INJECTION As Ordered ONE (10:15)
[2022-11-03 12:15] VITALS: BP 115/71
== END 2022-11-03 12:35 | disposition home or self-care (01) ==
LOC: M SDC 09:22
PROVIDERS: ATTEND Podiatrist Foot & Ankle Surgery
DX: M67.471 Ganglion, right ankle and foot (principal); J45.909 Unspecified asthma, uncomplicated; F41.9 Anxiety disorder, unspecified; F32.A Depression, unspecified; F17.210 Nicotine dependence, cigarettes, uncomplicated; Z79.899 Other long term (current) drug therapy; Z79.51 Long term (current) use of inhaled steroids
CPT/HCPCS: 28090; 81025; 88304; J0690; J1100; J2250; J2405; J3010

== ENCOUNTER → 2023-02-23 | Outpatient (CLI) | payer MEDICAID, OTHER ==
[~2023-02-23] MED LIST changes: -BUPIVACAINE HCL 0.5% 30ML VIAL As Ordered ONE; +FLUT50SP17; -FLUTISP; -LIDOCAINE 1% MDV 20ML VIAL As Ordered ONE; -ceFAZolin SOD 2 GM in IV 1 EA IV ONE
== END ==
LOC: M ADAMS 11:30
PROVIDERS: ATTEND Physician Assistant
DX: M79.641 Pain in right hand (principal)

== ENCOUNTER → 2023-03-21 | Outpatient (REF) | payer OTHER, MEDICAID ==
[2023-03-21 13:11] LABS: CHOLESTEROL RISK RATIO 3.92 (<5); HDL CHOLESTEROL 45.1 MG/DL (>40); LDL CHOLESTEROL 113.1 MG/DL (<100); NON-HDL-C 131.9 MG/DL
== END ==
LOC: M LABDRWAD 12:21
PROVIDERS: ATTEND Psychiatry & Neurology Psychiatry
DX: F32.2 Major depressive disorder, single episode, severe without psychotic features (principal); F12.20 Cannabis dependence, uncomplicated; F60.3 Borderline personality disorder

== ENCOUNTER → 2023-07-14 | Outpatient (REF) | payer OTHER ==
[~2023-07-14] MED LIST changes: +DOXY100C3 PO; +HYDR-3363 PO; +VRAY3CAP PO
== END ==
LOC: M SFHCDERM 09:53
PROVIDERS: ATTEND Physician Assistant
DX: Z79.899 Other long term (current) drug therapy (principal)

== ENCOUNTER 2023-07-18 08:05 | Day surgery (SDC) | payer OTHER ==
[~2023-07-18] VITALS: Ht 157.5 cm; Wt 54.2 kg
[~2023-07-18 08:05] MED LIST changes: +ceFAZolin SOD 2 GM in IV 1 EA IV ONE
[2023-07-18] MEDS ORDERED: KETOROLAC 60MG 2ML VIAL As Ordered ONE (08:53)
[2023-07-18] MEDS ORDERED: ONDANSETRON 4MG 2ML VIAL As Ordered ONE (08:53)
[2023-07-18] MEDS ORDERED: LIDOCAINE 2% 100MG/5ML SDV (FOR ANES.) As Ordered ONE (08:54)
[2023-07-18] MEDS ORDERED: propofoL 200 MG/20 ML VIAL As Ordered ONE (08:54)
[2023-07-18] MEDS ORDERED: fentaNYL 100 MCG/2 ML INJECTION As Ordered ONE (08:57)
[2023-07-18] MEDS ORDERED: MIDAZOLAM INJ 2MG/2ML VIAL As Ordered ONE (08:57)
[2023-07-18] MEDS ORDERED: LR 1,000 ML IV SCH ×2 (09:20→10:25)
[2023-07-18] MEDS ORDERED: ACETAMINOPHEN 1000MG 100ML IV BAG As Ordered ONE (09:42)
[2023-07-18] MEDS ORDERED: ONDANSETRON 4MG 2ML VIAL IV PRN (10:25)
[2023-07-18] MEDS ORDERED: oxyCODONE 5MG TAB PO PRN (10:25)
[2023-07-18] MEDS ORDERED: fentaNYL 100 MCG/2 ML INJECTION IV PRN (10:25)
[2023-07-18] MEDS ORDERED: HYDROMORPHONE HCL 0.5 MG/ 0.5 ML SYRINGE IV PRN (10:25)
[2023-07-18 11:09] VITALS: BP 118/76; TEMP 98.9; O2SAT 96
== END 2023-07-18 11:31 | disposition home or self-care (01) ==
LOC: M SDC 08:05
PROVIDERS: ATTEND Orthopaedic Surgery Hand Surgery
DX: G56.21 Lesion of ulnar nerve, right upper limb (principal); F41.9 Anxiety disorder, unspecified; F32.A Depression, unspecified; J45.909 Unspecified asthma, uncomplicated; F17.218 Nicotine dependence, cigarettes, with other nicotine-induced disorders; F17.290 Nicotine dependence, other tobacco product, uncomplicated; Z79.899 Other long term (current) drug therapy; Z79.2 Long term (current) use of antibiotics; Z79.1 Long term (current) use of non-steroidal anti-inflammatories (NSAID)
CPT/HCPCS: 24358; 81025; J0131; J0665; J1100; J1885; J2250; J2405; J3010

== ENCOUNTER → 2023-07-25 | Outpatient (REF) | payer OTHER ==
[~2023-07-25] MED LIST changes: -ceFAZolin SOD 2 GM in IV 1 EA IV ONE
[2023-07-25 18:31] LABS: MEAN CORPUSCULAR HEMOGLOBIN 30.9 pg (27.0-33.0); MEAN CORPUSCULAR HGB CONC 34.1 g/dl (32.0-36.5); MEAN CORPUSCULAR VOLUME 90.5 fl (80.0-96.0); PLATELET COUNT, AUTOMATED 308 10^3/uL (150-450); RED BLOOD COUNT 4.53 10^6/uL (4.00-5.40); WHITE BLOOD COUNT 9.8 10^3/uL (4.0-10.0)
[2023-07-25 18:59] LABS: ALBUMIN 3.6 G/DL (3.2-5.2); ALKALINE PHOSPHATASE 111 U/L (46-116); ALT/SGPT 17 U/L (7.0-40); AST/SGOT 16 U/L (<34); BILIRUBIN,TOTAL 0.2 MG/DL (0.3-1.2); BLOOD UREA NITROGEN < 5 MG/DL (9-23); CALCIUM LEVEL 8.8 MG/DL (8.5-10.1); CARBON DIOXIDE LEVEL 26 MMOL/L (20-31); CHLORIDE LEVEL 103 MMOL/L (98-107); CHOLESTEROL LEVEL 191 MG/DL (<200); CHOLESTEROL RISK RATIO 4.38 (<5); CREATININE FOR GFR 0.46 MG/DL (0.55-1.30); GLOMERULAR FILTRATION RATE > 60.0 (>60); GLUCOSE, FASTING 84 MG/DL (60-100); HDL CHOLESTEROL 43.6 MG/DL (>40); NON-HDL-C 147.4 MG/DL; POTASSIUM SERUM 3.1 MMOL/L (3.5-5.1); SODIUM LEVEL 137 MMOL/L (136-145); TOTAL PROTEIN 6.4 G/DL (5.7-8.2); TRIGLYCERIDES LEVEL 102 MG/DL (<150)
[2023-07-25 19:09] LABS: ANISOCYTOSIS 1+; ATYPICAL LYMPH 4 % (0-5); EOSINOPHILS 1 % (0-3); LYMPHOCYTES 24 % (16-44); MONOCYTES 4 % (0-5); NEUTROPHILS 67 % (28-66); PLATELET ESTIMATE NORMAL (NORMAL)
== END ==
LOC: M SFHCDERM 14:45
PROVIDERS: ATTEND Physician Assistant
DX: Z79.899 Other long term (current) drug therapy (principal)

== ENCOUNTER → 2024-08-21 | Outpatient (REF) | payer MEDICAID, OTHER ==
[~2024-08-21] MED LIST changes: -FLUT50SP17; +FLUTISP; +GABA-1172 PO; -GABA-282 PO; -MIRT-60; +MIRT-89
[2024-08-21 20:30] LABS: Trichomonas vaginalis (AMP) NOT DETECTED (NEGATIVE)
[2024-08-21 20:54] LABS: GC DNA AMPLIFICATION NEGATIVE (NEGATIVE)
== END ==
LOC: M SFHCADAM 17:35
PROVIDERS: ATTEND Physician Assistant Medical
DX: Z12.4 Encounter for screening for malignant neoplasm of cervix (principal); Z11.3 Encounter for screening for infections with a predominantly sexual mode of transmission; R87.5 Abnormal microbiological findings in specimens from female genital organs

== ENCOUNTER 2024-09-01 15:14 | Emergency (ER) | payer OTHER ==
[~2024-09-01] VITALS: Ht 157.5 cm; Wt 56.5 kg
[2024-09-01 16:40] LABS: BASO % 0.3 % (0.0-1.0); EOS # 0.1 10^3/uL (0.0-0.5); EOS % 1.3 % (0.0-3.0); HEMATOCRIT 45.4 % (36.0-47.0); HEMOGLOBIN 15.7 g/dl (12.0-15.5); LYMPH # 3.2 10^3/uL (1.5-5.0); LYMPH % 30.4 % (24.0-44.0); MEAN CORPUSCULAR HEMOGLOBIN 29.9 pg (27.0-33.0); MEAN CORPUSCULAR HGB CONC 34.6 g/dl (32.0-36.5); MEAN CORPUSCULAR VOLUME 86.5 fl (80.0-96.0); MONO # 0.7 10^3/uL (0.0-0.8); MONO % 6.4 % (2.0-8.0); NEUTROPHILS # 6.4 10^3/uL (1.5-8.5); NEUTROPHILS % 61.4 % (36.0-66.0); PLATELET COUNT, AUTOMATED 265 10^3/uL (150-450); RED BLOOD COUNT 5.25 10^6/uL (4.00-5.40); WHITE BLOOD COUNT 10.4 10^3/uL (4.0-10.0)
[2024-09-01 17:04] LABS: LIPASE 20 U/L (12-53)
[2024-09-01 17:07] LABS: ALBUMIN 3.7 G/DL (3.2-5.2); ALKALINE PHOSPHATASE 104 U/L (35-104); ALT/SGPT 17 U/L (7.0-40); AST/SGOT 22 U/L (<34); BILIRUBIN,DIRECT 0.1 MG/DL (<0.4); BILIRUBIN,TOTAL 0.4 MG/DL (0.3-1.2); BLOOD UREA NITROGEN < 5 MG/DL (9-23); CALCIUM LEVEL 9.9 MG/DL (8.5-10.1); CARBON DIOXIDE LEVEL 33 MMOL/L (20-31); CHLORIDE LEVEL 99 MMOL/L (98-107); CREATININE FOR GFR 0.55 MG/DL (0.55-1.30); GLOMERULAR FILTRATION RATE > 60.0 (>60); GLUCOSE, FASTING 103 MG/DL (60-100); HCG, SERUM QUALITATIVE NEGATIVE (NEGATIVE); POTASSIUM SERUM 3.6 MMOL/L (3.5-5.1); SODIUM LEVEL 137 MMOL/L (136-145); TOTAL PROTEIN 7.1 G/DL (5.7-8.2)
[2024-09-01 18:01] LABS: KETONE, URINE AUTO RFX TRACE mg/dL (NEGATIVE); LEUKOCYTE ESTERASE UR AUTO RFX NEGATIVE (NEGATIVE)
[2024-09-01] MEDS ORDERED: MIRA3350 PO (18:59)
[2024-09-01] MEDS ORDERED: COLA100C5 PO (18:59)
[2024-09-01 19:06] VITALS: BP 106/60; TEMP 98.3; O2SAT 96
[2024-09-01] MEDS: MAGNESIUM CITRATE 300ML BTL PO ONE (19:06)
== END 2024-09-01 19:08 | disposition home or self-care (01) ==
LOC: M ED 15:14
DX: K59.00 Constipation, unspecified (principal); F17.210 Nicotine dependence, cigarettes, uncomplicated; F12.10 Cannabis abuse, uncomplicated; Z79.51 Long term (current) use of inhaled steroids; Z79.899 Other long term (current) drug therapy

== ENCOUNTER → 2024-10-22 | Outpatient (REF) | payer OTHER ==
[~2024-10-22] MED LIST changes: +COLA100C5 PO; +MIRA3350 PO
== END ==
LOC: M SFHCPLAZ 09:51
PROVIDERS: ATTEND Student in an Organized Health Care Education/Training Program
DX: J06.9 Acute upper respiratory infection, unspecified (principal)

== ENCOUNTER → 2024-11-20 | Outpatient (REF) | payer OTHER ==
[2024-11-20 18:12] LABS: BASO % 0.4 % (0.0-1.0); EOS # 0.2 10^3/uL (0.0-0.5); EOS % 2.9 % (0.0-3.0); HEMATOCRIT 42.9 % (36.0-47.0); HEMOGLOBIN 14.4 g/dl (12.0-15.5); LYMPH # 2.9 10^3/uL (1.5-5.0); LYMPH % 34.8 % (24.0-44.0); MEAN CORPUSCULAR HEMOGLOBIN 30.4 pg (27.0-33.0); MEAN CORPUSCULAR HGB CONC 33.6 g/dl (32.0-36.5); MEAN CORPUSCULAR VOLUME 90.5 fl (80.0-96.0); MONO # 0.7 10^3/uL (0.0-0.8); MONO % 8.8 % (2.0-8.0); NEUTROPHILS # 4.4 10^3/uL (1.5-8.5); NEUTROPHILS % 52.9 % (36.0-66.0); PLATELET COUNT, AUTOMATED 235 10^3/uL (150-450); RED BLOOD COUNT 4.74 10^6/uL (4.00-5.40); WHITE BLOOD COUNT 8.3 10^3/uL (4.0-10.0)
[2024-11-20 18:41] LABS: FREE T4 1.28 NG/DL (0.89-1.76); THYROID STIMULATING HORMONE 1.026 uIU/ML (0.55-4.78); TOTAL 25(OH) VITAMIN D 12.4 NG/ML (20.0-100.0)
[2024-11-20 18:46] LABS: ALBUMIN 3.8 G/DL (3.2-5.2); ALKALINE PHOSPHATASE 108 U/L (35-104); ALT/SGPT 10 U/L (7.0-40); AST/SGOT 11 U/L (<34); BILIRUBIN,TOTAL 0.5 MG/DL (0.3-1.2); BLOOD UREA NITROGEN < 5 MG/DL (9-23); CALCIUM LEVEL 9.3 MG/DL (8.5-10.1); CARBON DIOXIDE LEVEL 29 MMOL/L (20-31); CHLORIDE LEVEL 103 MMOL/L (98-107); CHOLESTEROL LEVEL 159 MG/DL (<200); CHOLESTEROL RISK RATIO 3.99 (<5); CREATININE FOR GFR 0.54 MG/DL (0.55-1.30); GLOMERULAR FILTRATION RATE > 60.0 (>60); GLUCOSE, FASTING 80 MG/DL (60-100); HDL CHOLESTEROL 39.8 MG/DL (>40); LDL CHOLESTEROL 97.8 MG/DL (<100); NON-HDL-C 119.2 MG/DL; POTASSIUM SERUM 3.4 MMOL/L (3.5-5.1); SODIUM LEVEL 143 MMOL/L (136-145); TRIGLYCERIDES LEVEL 107 MG/DL (<150)
== END ==
LOC: M SFHCADAM 15:19
PROVIDERS: ATTEND Physician Assistant Medical
DX: Z00.00 Encounter for general adult medical examination without abnormal findings (principal); F17.210 Nicotine dependence, cigarettes, uncomplicated; J45.20 Mild intermittent asthma, uncomplicated; F32.2 Major depressive disorder, single episode, severe without psychotic features; R55 Syncope and collapse; R07.9 Chest pain, unspecified

== ENCOUNTER → 2024-11-27 | Outpatient (CLI) | payer OTHER | LOC: M SLEEP 07:31 | PROVIDERS: ATTEND Physician Assistant Medical | DX: R55 Syncope and collapse (principal) ==

== ENCOUNTER → 2024-12-06 | Outpatient (CLI) | payer OTHER | LOC: M RAD 07:39 | PROVIDERS: ATTEND Physician Assistant Medical | DX: R55 Syncope and collapse (principal) ==

== ENCOUNTER → 2025-01-03 | Outpatient (REF) | payer OTHER ==
[2025-01-03 19:06] LABS: BASO % 0.4 % (0.0-1.0); EOS # 0.3 10^3/uL (0.0-0.5); EOS % 3.5 % (0.0-3.0); HEMATOCRIT 44.4 % (36.0-47.0); HEMOGLOBIN 15.1 g/dl (12.0-15.5); LYMPH % 21.8 % (24.0-44.0); MEAN CORPUSCULAR HEMOGLOBIN 30.8 pg (27.0-33.0); MEAN CORPUSCULAR VOLUME 90.6 fl (80.0-96.0); MONO # 0.7 10^3/uL (0.0-0.8); NEUTROPHILS # 6.3 10^3/uL (1.5-8.5); NEUTROPHILS % 67.1 % (36.0-66.0); PLATELET COUNT, AUTOMATED 284 10^3/uL (150-450); WHITE BLOOD COUNT 9.3 10^3/uL (4.0-10.0)
[2025-01-03 19:13] LABS: ERYTHROCYTE SEDIMENTATION RATE 22 mm/hr (0-20)
== END ==
LOC: M SFHCADAM 11:48
PROVIDERS: ATTEND Physician Assistant
DX: L03.211 Cellulitis of face (principal)

== ENCOUNTER 2025-01-05 08:45 | Emergency (ER) | payer OTHER ==
[~2025-01-05] VITALS: Ht 157.5 cm; Wt 51.8 kg
[2025-01-05] MEDS: ONDANSETRON 4MG 2ML VIAL IV ONE (09:56)
[2025-01-05] MEDS: dexAMETHasone 20 MG/5 ML VIAL IV ONE (09:56)
[2025-01-05 10:00] LABS: BASO % 0.3 % (0.0-1.0); EOS # 0.2 10^3/uL (0.0-0.5); EOS % 2.1 % (0.0-3.0); HEMATOCRIT 43.6 % (36.0-47.0); HEMOGLOBIN 15.2 g/dl (12.0-15.5); LYMPH # 2.1 10^3/uL (1.5-5.0); LYMPH % 20.2 % (24.0-44.0); MEAN CORPUSCULAR HEMOGLOBIN 31.3 pg (27.0-33.0); MEAN CORPUSCULAR HGB CONC 34.9 g/dl (32.0-36.5); MEAN CORPUSCULAR VOLUME 89.9 fl (80.0-96.0); MONO # 0.6 10^3/uL (0.0-0.8); MONO % 5.7 % (2.0-8.0); NEUTROPHILS # 7.3 10^3/uL (1.5-8.5); NEUTROPHILS % 71.4 % (36.0-66.0); PLATELET COUNT, AUTOMATED 293 10^3/uL (150-450); RED BLOOD COUNT 4.85 10^6/uL (4.00-5.40); WHITE BLOOD COUNT 10.3 10^3/uL (4.0-10.0)
[2025-01-05 10:11] LABS: ERYTHROCYTE SEDIMENTATION RATE 40 mm/hr (0-20)
[2025-01-05 10:26] LABS: LIPASE 18 U/L (12-53)
[2025-01-05] MEDS: KETOROLAC 30 MG/ML 1 ML VIAL IV ONE (10:28)
[2025-01-05 10:29] LABS: C REACTIVE PROTEIN QUANTITATIV 8.55 MG/DL (<1.0)
[2025-01-05] MEDS ORDERED: ISOVUE-370 76% 100 ML VIAL As Ordered ONE (10:30)
[2025-01-05 10:34] LABS: ALBUMIN 3.7 G/DL (3.2-5.2); ALKALINE PHOSPHATASE 147 U/L (35-104); ALT/SGPT 10 U/L (7.0-40); AST/SGOT 22 U/L (<34); BILIRUBIN,DIRECT 0.2 MG/DL (<0.4); BILIRUBIN,TOTAL 0.5 MG/DL (0.3-1.2); BLOOD UREA NITROGEN < 5 MG/DL (9-23); CALCIUM LEVEL 9.5 MG/DL (8.5-10.1); CARBON DIOXIDE LEVEL 30 MMOL/L (20-31); CHLORIDE LEVEL 98 MMOL/L (98-107); CREATININE FOR GFR 0.57 MG/DL (0.55-1.30); GLOMERULAR FILTRATION RATE > 90.0 (>60); GLUCOSE, FASTING 108 MG/DL (60-100); POTASSIUM SERUM 3.2 MMOL/L (3.5-5.1); SODIUM LEVEL 137 MMOL/L (136-145); TOTAL PROTEIN 7.2 G/DL (5.7-8.2)
[2025-01-05] MEDS: LIDOCAINE 1% MDV 20 ML VIAL SC ONE (12:14)
[2025-01-05] MEDS: CLINDAMYCIN 600 MG in IV 1 EA IV ONE (13:25)
[2025-01-05] MEDS ORDERED: HYDR-3713 PO (14:57)
[2025-01-05] MEDS ORDERED: ONDA-282 PO (14:57)
[2025-01-05] MEDS ORDERED: CLIN-250 PO (14:57)
[2025-01-05] MEDS: POTASSIUM CHLORIDE 10MEQ SR TABLET PO ONE (14:59)
[2025-01-05 15:00] VITALS: BP 109/74; TEMP 98.4; O2SAT 96
[2025-01-05] MEDS ORDERED: POTA-141 PO (15:08)
[2025-01-27] MEDS ORDERED: PROT1TAB2 PO (10:56)
[2025-01-27] MEDS ORDERED: ONDA-282 PO (10:56)
[2025-01-27] MEDS ORDERED: KETO-204 PO (10:56)
[2025-02-22] MEDS ORDERED: MUPI2OI PO (09:16)
== END 2025-01-05 15:09 | disposition home or self-care (01) ==
LOC: M ED 08:45
DX: L02.01 Cutaneous abscess of face (principal); E87.6 Hypokalemia; J45.909 Unspecified asthma, uncomplicated; F17.210 Nicotine dependence, cigarettes, uncomplicated; F12.10 Cannabis abuse, uncomplicated; Z79.1 Long term (current) use of non-steroidal anti-inflammatories (NSAID); Z79.2 Long term (current) use of antibiotics; Z79.51 Long term (current) use of inhaled steroids; Z79.899 Other long term (current) drug therapy

== ENCOUNTER 2025-01-07 14:47 | Inpatient (IN) | payer OTHER ==
[~2025-01-07] VITALS: Ht 157.5 cm; Wt 51.9 kg
[~2025-01-07 14:47] MED LIST changes: -CLEO300C2 PO; -DOK100TA2 PO; -ERGO500029 PO; -POTA-151 PO; -ZYVO1TAB PO
[2025-01-07 16:48] LABS: BASO % 0.5 % (0.0-1.0); EOS # 0.2 10^3/uL (0.0-0.5); EOS % 2.6 % (0.0-3.0); HEMOGLOBIN 14.5 g/dl (12.0-15.5); LYMPH # 2.7 10^3/uL (1.5-5.0); LYMPH % 34.8 % (24.0-44.0); MEAN CORPUSCULAR HEMOGLOBIN 30.9 pg (27.0-33.0); MEAN CORPUSCULAR HGB CONC 34.5 g/dl (32.0-36.5); MEAN CORPUSCULAR VOLUME 89.4 fl (80.0-96.0); MONO # 0.4 10^3/uL (0.0-0.8); MONO % 5.5 % (2.0-8.0); NEUTROPHILS # 4.4 10^3/uL (1.5-8.5); NEUTROPHILS % 56.5 % (36.0-66.0); PLATELET COUNT, AUTOMATED 321 10^3/uL (150-450); WHITE BLOOD COUNT 7.8 10^3/uL (4.0-10.0)
[2025-01-07 16:55] LABS: ERYTHROCYTE SEDIMENTATION RATE 31 mm/hr (0-20)
[2025-01-07 17:13] LABS: C REACTIVE PROTEIN QUANTITATIV 2.25 MG/DL (<1.0)
[2025-01-07 17:15] LABS: BLOOD UREA NITROGEN < 5 MG/DL (9-23); CALCIUM LEVEL 9.7 MG/DL (8.5-10.1); CARBON DIOXIDE LEVEL 29 MMOL/L (20-31); CHLORIDE LEVEL 102 MMOL/L (98-107); GLOMERULAR FILTRATION RATE > 90.0 (>60); GLUCOSE, FASTING 86 MG/DL (60-100); POTASSIUM SERUM 3.9 MMOL/L (3.5-5.1); SODIUM LEVEL 139 MMOL/L (136-145)
[2025-01-07] MEDS ORDERED: DOK100TA2 PO (18:08)
[2025-01-07] MEDS ORDERED: POTA-151 PO (18:08)
[2025-01-07] MEDS ORDERED: ERGO500029 PO (18:08)
[2025-01-07] MEDS ORDERED: CLEO300C2 PO (18:08)
[2025-01-07] MEDS ORDERED: HOME MED LIST COMPLETE! XX SCH (18:10)
[2025-01-07] MEDS ORDERED: ISOVUE-370 76% 100ML VIAL As Ordered ONE (18:30)
[2025-01-07] MEDS: VANCOMYCIN HCL 1,000 MG, VIAL MATE ADAPTER 1 EACH in NS 250 ML IV ONE (18:44)
[2025-01-07] MEDS ORDERED: ALBUTEROL 90 MCG/ACT 8GM HFA INHALER INH PRN (18:50)
[2025-01-07] MEDS: LR 1,000 ML IV SCH (19:00)
[2025-01-07] MEDS ORDERED: oxyCODONE 5MG TAB PO PRN (19:00)
[2025-01-07 20:25] VITALS: BP 112/73; TEMP 97.2; O2SAT 98
[2025-01-07] MEDS: ACETAMINOPHEN 500 MG TAB PO SCH (21:10)
[2025-01-07] MEDS ORDERED: NICOTINE 14 MG/24 HR TRANSDERMAL TD PRN (22:45)
[2025-01-07 23:54] VITALS: BP 107/65; TEMP 97.7; O2SAT 96
[2025-01-08] MEDS: VANCOMYCIN HCL 750 MG, VIAL MATE ADAPTER 1 EACH in NS 250 ML IV SCH (01:38)
[2025-01-08 03:57] VITALS: BP 96/64; TEMP 97.7; O2SAT 96
[2025-01-08] MEDS: FLUTICASONE HFA 110MCG 12GM INHALER INH SCH (07:33)
[2025-01-08 07:47] LABS: HEMATOCRIT 39.5 % (36.0-47.0); HEMOGLOBIN 13.7 g/dl (12.0-15.5); MEAN CORPUSCULAR HEMOGLOBIN 30.7 pg (27.0-33.0); MEAN CORPUSCULAR HGB CONC 34.7 g/dl (32.0-36.5); MEAN CORPUSCULAR VOLUME 88.6 fl (80.0-96.0); PLATELET COUNT, AUTOMATED 285 10^3/uL (150-450); RED BLOOD COUNT 4.46 10^6/uL (4.00-5.40); WHITE BLOOD COUNT 5.4 10^3/uL (4.0-10.0)
[2025-01-08 08:00] VITALS: BP 96/64; TEMP 97.3; O2SAT 97
[2025-01-08 08:25] LABS: BLOOD UREA NITROGEN < 5 MG/DL (9-23); CALCIUM LEVEL 8.7 MG/DL (8.5-10.1); CARBON DIOXIDE LEVEL 29 MMOL/L (20-31); CHLORIDE LEVEL 105 MMOL/L (98-107); CREATININE FOR GFR 0.49 MG/DL (0.55-1.30); GLOMERULAR FILTRATION RATE > 90.0 (>60); GLUCOSE, FASTING 88 MG/DL (60-100); POTASSIUM SERUM 3.7 MMOL/L (3.5-5.1); SODIUM LEVEL 140 MMOL/L (136-145)
[2025-01-08] MEDS ORDERED: VANCOMYCIN HCL 1,000 MG, VIAL MATE ADAPTER 1 EACH in NS 250 ML IV SCH (09:00)
[2025-01-08] MEDS: LIDOCAINE W/EPINEPHRINE 1% 20ML VIAL SC ONE (09:39)
[2025-01-08] MEDS: oxyCODONE 5MG TAB PO PRN (09:46)
[2025-01-08] MEDS: ENOXAPARIN 40MG/0.4ML SYRINGE (J1650 PER 10MG) SC SCH (10:40)
[2025-01-08] MEDS: ONDANSETRON 4MG 2ML VIAL IV PRN (10:40)
[2025-01-08 12:00] VITALS: BP 116/81; O2SAT 98
[2025-01-08 16:00] VITALS: BP 116/81; TEMP 97; O2SAT 97
[2025-01-08 19:23] VITALS: BP 107/62; TEMP 97.5; O2SAT 99
[2025-01-08 23:59] VITALS: BP 106/62; TEMP 97.5; O2SAT 99
[2025-01-09 04:10] VITALS: BP 104/62; TEMP 97.3; O2SAT 97
[2025-01-09 08:00] VITALS: BP 117/86; TEMP 97.5; O2SAT 98
[2025-01-09 08:57] LABS: HEMATOCRIT 39.1 % (36.0-47.0); HEMOGLOBIN 13.4 g/dl (12.0-15.5); MEAN CORPUSCULAR HEMOGLOBIN 30.5 pg (27.0-33.0); MEAN CORPUSCULAR HGB CONC 34.3 g/dl (32.0-36.5); MEAN CORPUSCULAR VOLUME 88.9 fl (80.0-96.0); PLATELET COUNT, AUTOMATED 286 10^3/uL (150-450); WHITE BLOOD COUNT 5.5 10^3/uL (4.0-10.0)
[2025-01-09 09:40] LABS: BLOOD UREA NITROGEN < 5 MG/DL (9-23); CALCIUM LEVEL 8.7 MG/DL (8.5-10.1); CARBON DIOXIDE LEVEL 28 MMOL/L (20-31); CHLORIDE LEVEL 105 MMOL/L (98-107); CREATININE FOR GFR 0.47 MG/DL (0.55-1.30); GLOMERULAR FILTRATION RATE > 90.0 (>60); GLUCOSE, FASTING 112 MG/DL (60-100); POTASSIUM SERUM 3.7 MMOL/L (3.5-5.1); SODIUM LEVEL 140 MMOL/L (136-145)
[2025-01-09] MEDS ORDERED: ZYVO1TAB PO (10:15)
[2025-01-09 12:00] VITALS: TEMP 97.5; O2SAT 100
== END 2025-01-09 12:00 | disposition home or self-care (01) | DRG 114 ==
LOC: M ED 14:47 → M ED INP 18:46 → EEVIPCON 18:46 → M MS5PR 20:27
PROVIDERS: ADMIT Student in an Organized Health Care Education/Training Program; ATTEND Internal Medicine
PROC: 0C9 Mouth and Throat, Drainage (ICD-10-PCS; principal; 2025-01-08)
DX: K13.0 Diseases of lips (principal); B95.62 Methicillin resistant Staphylococcus aureus infection as the cause of diseases classified elsewhere; J45.20 Mild intermittent asthma, uncomplicated; F17.290 Nicotine dependence, other tobacco product, uncomplicated; L70.9 Acne, unspecified; F31.9 Bipolar disorder, unspecified; F41.9 Anxiety disorder, unspecified; Z79.899 Other long term (current) drug therapy

== ENCOUNTER → 2025-01-07 | Outpatient (REF) | payer OTHER ==
[~2025-01-07] MED LIST changes: +CLEO300C2 PO; +CLIN-250 PO; +DOK100TA2 PO; +ERGO500029 PO; +HYDR-3713 PO; +KETO-204 PO; +MUPI2OI PO; +ONDA-282 PO; +POTA-141 PO; +POTA-151 PO; +PROT1TAB2 PO; +ZYVO1TAB PO
[2025-01-07 13:07] LABS: BASO % 0.4 % (0.0-1.0); EOS # 0.3 10^3/uL (0.0-0.5); EOS % 2.9 % (0.0-3.0); HEMATOCRIT 43.3 % (36.0-47.0); HEMOGLOBIN 14.8 g/dl (12.0-15.5); LYMPH # 3.1 10^3/uL (1.5-5.0); LYMPH % 33.8 % (24.0-44.0); MEAN CORPUSCULAR HEMOGLOBIN 31.2 pg (27.0-33.0); MEAN CORPUSCULAR HGB CONC 34.2 g/dl (32.0-36.5); MEAN CORPUSCULAR VOLUME 91.4 fl (80.0-96.0); MONO # 0.6 10^3/uL (0.0-0.8); MONO % 6.1 % (2.0-8.0); NEUTROPHILS # 5.1 10^3/uL (1.5-8.5); NEUTROPHILS % 56.6 % (36.0-66.0); PLATELET COUNT, AUTOMATED 332 10^3/uL (150-450); RED BLOOD COUNT 4.74 10^6/uL (4.00-5.40); WHITE BLOOD COUNT 9.1 10^3/uL (4.0-10.0)
[2025-01-07 13:17] LABS: ERYTHROCYTE SEDIMENTATION RATE 28 mm/hr (0-20)
[2025-01-07 13:36] LABS: C REACTIVE PROTEIN QUANTITATIV 2.69 MG/DL (<1.0)
[2025-01-07 13:37] LABS: BLOOD UREA NITROGEN 5 MG/DL (9-23); CALCIUM LEVEL 9.9 MG/DL (8.5-10.1); CARBON DIOXIDE LEVEL 30 MMOL/L (20-31); CHLORIDE LEVEL 101 MMOL/L (98-107); CREATININE FOR GFR 0.53 MG/DL (0.55-1.30); GLOMERULAR FILTRATION RATE > 90.0 (>60); GLUCOSE, FASTING 92 MG/DL (60-100); POTASSIUM SERUM 3.2 MMOL/L (3.5-5.1); SODIUM LEVEL 140 MMOL/L (136-145)
== END ==
LOC: M SFHCADAM 09:18
PROVIDERS: ATTEND Physician Assistant
DX: L03.211 Cellulitis of face (principal); E87.6 Hypokalemia

== ENCOUNTER → 2025-01-07 | Outpatient (CLI) | payer OTHER ==
[~2025-01-07] MED LIST changes: -KETO-204 PO; -MUPI2OI PO; -PROT1TAB2 PO
== END ==
LOC: M ADAMS 09:29
PROVIDERS: ATTEND Physician Assistant
DX: J45.20 Mild intermittent asthma, uncomplicated (principal)

== ENCOUNTER 2025-04-01 08:38 | Emergency (ER) | payer OTHER ==
[~2025-04-01] VITALS: Ht 157.5 cm; Wt 48.2 kg
[~2025-04-01 08:38] MED LIST changes: +CLEO300C2 PO; +DOK100TA2 PO; +ERGO500029 PO; +KETO-204 PO; +MUPI2OI PO; +POTA-151 PO; +PROT1TAB2 PO; +ZYVO1TAB PO
[2025-04-01] MEDS ORDERED: HOME MED LIST COMPLETE! XX SCH (09:40)
[2025-04-01 10:12] LABS: PLATELET COUNT, AUTOMATED 223 10^3/uL (150-450)
[2025-04-01 10:32] LABS: ALT/SGPT 24 U/L (7.0-40); AST/SGOT 32 U/L (<34); CALCIUM LEVEL 9.3 MG/DL (8.5-10.1); CARBON DIOXIDE LEVEL 28 MMOL/L (20-31); CHLORIDE LEVEL 100 MMOL/L (98-107); CREATININE FOR GFR 0.63 MG/DL (0.55-1.30); GLOMERULAR FILTRATION RATE > 90.0 (>60); POTASSIUM SERUM 3.6 MMOL/L (3.5-5.1); SODIUM LEVEL 138 MMOL/L (136-145)
[2025-04-01] MEDS: KETOROLAC 30 MG/ML 1 ML VIAL IV ONE (10:33)
[2025-04-01] MEDS: NS (Normal Saline) 0.9% 1,000 ML IV ONE (10:34)
[2025-04-01] MEDS: ONDANSETRON 4MG 2ML VIAL IV ONE (10:34)
[2025-04-01 10:38] LABS: HCG, SERUM QUALITATIVE NEGATIVE (NEGATIVE)
[2025-04-01 10:54] LABS: ATYPICAL LYMPH 11 % (0-5); EOSINOPHILS 5 % (0-3); LYMPHOCYTES 34 % (16-44); MONOCYTES 6 % (0-5); NEUTROPHILS 44 % (28-66)
[2025-04-01 10:56] LABS: PLATELET ESTIMATE NORMAL (NORMAL)
[2025-04-01] MEDS ORDERED: ISOVUE-370 76% 100 ML VIAL As Ordered ONE (11:00)
[2025-04-01 13:38] VITALS: TEMP 97.5
[2025-04-01 13:45] VITALS: BP 115/56; O2SAT 98
== END 2025-04-01 14:30 | disposition home or self-care (01) ==
LOC: M ED 08:38
DX: N83.292 Other ovarian cyst, left side (principal); J45.909 Unspecified asthma, uncomplicated; F17.210 Nicotine dependence, cigarettes, uncomplicated; F12.10 Cannabis abuse, uncomplicated; Z79.51 Long term (current) use of inhaled steroids; Z79.899 Other long term (current) drug therapy
CPT/HCPCS: 74177; 76830; 76856; 80048; 80076; 83690; 84703; 85025; 87486; 87581; 87633; 87798; 93976; 96361; 96374; 96375; 99284; J1885; J2405; Q9967

== ENCOUNTER → 2025-05-29 | Outpatient (REF) | payer OTHER | LOC: M SFHCADAM 12:43 | PROVIDERS: ATTEND Physician Assistant Medical | DX: J45.40 Moderate persistent asthma, uncomplicated (principal) ==

== ENCOUNTER → 2025-06-17 | Outpatient (CLI) | payer OTHER | LOC: M WHC 07:57 | PROVIDERS: ATTEND Physician Assistant Medical | DX: N83.292 Other ovarian cyst, left side (principal) ==

== ENCOUNTER → 2025-07-03 | Outpatient (REF) | payer OTHER ==
[2025-07-03 19:05] LABS: PLATELET COUNT, AUTOMATED 254 10^3/uL (150-450)
[2025-07-03 19:08] LABS: ALT/SGPT 17 U/L (7.0-40); AST/SGOT 18 U/L (<34); C REACTIVE PROTEIN QUANTITATIV 1.05 MG/DL (<1.0); CALCIUM LEVEL 9.5 MG/DL (8.5-10.1); CARBON DIOXIDE LEVEL 30 MMOL/L (20-31); CHLORIDE LEVEL 100 MMOL/L (98-107); CREATININE FOR GFR 0.61 MG/DL (0.55-1.30); GLOMERULAR FILTRATION RATE > 90.0 (>60); POTASSIUM SERUM 3.1 MMOL/L (3.5-5.1); SODIUM LEVEL 139 MMOL/L (136-145)
[2025-07-03 20:14] LABS: ATYPICAL LYMPH 5 % (0-5); EOSINOPHILS 1 % (0-3); LYMPHOCYTES 31 % (16-44); MONOCYTES 4 % (0-5); NEUTROPHILS 59 % (28-66)
[2025-07-03 20:15] LABS: PLATELET ESTIMATE NORMAL (NORMAL)
== END ==
LOC: M SFHCADAM 11:44
PROVIDERS: ATTEND Physician Assistant
DX: A49.02 Methicillin resistant Staphylococcus aureus infection, unspecified site (principal)

== ENCOUNTER → 2025-08-27 | Outpatient (REF) | payer OTHER | LOC: M SFHCPLAZ 16:53 → M LAB REF 16:53 | PROVIDERS: ATTEND Physician Assistant Medical | DX: J06.9 Acute upper respiratory infection, unspecified (principal); R05.1 Acute cough ==